=== PATIENT | female | born 1950 | race Caucasian/White ===

== ENCOUNTER → 2019-08-16 | Outpatient (CLI) | payer MEDICARE, OTHER ==
[2019-08-16 11:56] LABS: BASO # 0.1 10^3/uL (0.0-0.2); BASO % 1.3 % (0.0-1.0); EOS # 0.2 10^3/uL (0.0-0.5); EOS % 2.7 % (0.0-3.0); HEMATOCRIT 39.7 % (36.0-47.0); HEMOGLOBIN 12.6 g/dl (12.0-15.5); LYMPH # 1.8 10^3/uL (1.5-5.0); LYMPH % 26.3 % (24.0-44.0); MEAN CORPUSCULAR HEMOGLOBIN 29.4 pg (27.0-33.0); MEAN CORPUSCULAR HGB CONC 31.7 g/dl (32.0-36.5); MEAN CORPUSCULAR VOLUME 92.8 fl (80.0-96.0); MONO # 0.8 10^3/uL (0.0-0.8); MONO % 12.2 % (0.0-5.0); NEUTROPHILS # 3.8 10^3/uL (1.5-8.5); NEUTROPHILS % 57.2 % (36.0-66.0); PLATELET COUNT, AUTOMATED 219 10^3/uL (150-450); RED BLOOD COUNT 4.28 10^6/uL (4.00-5.40); WHITE BLOOD COUNT 6.7 10^3/uL (4.0-10.0)
[2019-08-16 12:47] LABS: FERRITIN 276 NG/ML (8-252); IRON (FE) 72 UG/DL (50-170); PERCENT SATURATION 23.6 % (13.2-45.0); TOTAL IRON BINDING CAPACITY 305 UG/DL (250-450); VITAMIN B12 LEVEL 886 PG/ML
[2019-08-16 13:11] LABS: FOLATE > 24.0 NG/ML
== END ==
LOC: M WUC 09:57
DX: D64.9 Anemia, unspecified (principal)

== ENCOUNTER → 2019-08-27 | Outpatient (REF) | payer MEDICARE, OTHER | LOC: M LAB REF 08:09 | PROVIDERS: ATTEND Surgery | DX: L72.3 Sebaceous cyst (principal) ==

== ENCOUNTER 2023-08-13 09:20 | Emergency (ER) | payer MEDICARE, OTHER ==
[~2023-08-13] VITALS: Ht 160 cm; Wt 83.0 kg
[2023-08-13] MEDS ORDERED: IRBE300T12 (09:32)
[2023-08-13] MEDS ORDERED: ECOT81TA5 PO (09:32)
[2023-08-13] MEDS ORDERED: [UNRECOGNIZED DRUG - OTHER] (09:32)
[2023-08-13] MEDS ORDERED: IBUP200T46 PO (09:32)
[2023-08-13] MEDS ORDERED: PRAV20TA2 (09:32)
[2023-08-13] MEDS ORDERED: ACET650T61 PO (09:32)
[2023-08-13] MEDS ORDERED: CIDA500T2 PO (09:32)
[2023-08-13] MEDS ORDERED: CALTTAB6 PO (09:32)
[2023-08-13] MEDS ORDERED: THERTAB52 PO (09:32)
[2023-08-13] MEDS ORDERED: CO Q200C10 PO (09:32)
[2023-08-13 10:39] LABS: HEMATOCRIT 39.7 % (36.0-47.0); HEMOGLOBIN 13.3 g/dl (12.0-15.5); MEAN CORPUSCULAR HEMOGLOBIN 31.1 pg (27.0-33.0); MEAN CORPUSCULAR HGB CONC 33.5 g/dl (32.0-36.5); PLATELET COUNT, AUTOMATED 317 10^3/uL (150-450); RED BLOOD COUNT 4.27 10^6/uL (4.00-5.40); WHITE BLOOD COUNT 11.5 10^3/uL (4.0-10.0)
[2023-08-13] MEDS: dexAMETHasone 20MG/5ML VIAL IV ONE (10:40)
[2023-08-13] MEDS: diphenhydrAMINE 50MG/ML VIAL IV ONE (10:40)
[2023-08-13] MEDS: FAMOTIDINE 20MG/2ML VIAL IVP ONE (10:40)
[2023-08-13 10:46] LABS: BLOOD UREA NITROGEN 25 MG/DL (9-23); CALCIUM LEVEL 9.5 MG/DL (8.3-10.6); CARBON DIOXIDE LEVEL 28 MMOL/L (20-31); CHLORIDE LEVEL 103 MMOL/L (98-107); CREATININE FOR GFR 0.74 MG/DL (0.55-1.30); GLOMERULAR FILTRATION RATE > 60.0 (>39); GLUCOSE, FASTING 128 MG/DL (74-106); POTASSIUM SERUM 4.8 MMOL/L (3.5-5.1); SODIUM LEVEL 136 MMOL/L (136-145)
[2023-08-13] MEDS ORDERED: CHLO125TA PO (12:49)
[2023-08-13] MEDS ORDERED: AMLO1TAB24 PO (12:49)
[2023-08-13 13:00] VITALS: BP 113/58; TEMP 98.4; O2SAT 98
== END 2023-08-13 13:08 | disposition home or self-care (01) ==
LOC: M ED 09:20
DX: T78.3XXA Angioneurotic edema, initial encounter (principal); T78.8XXA Other adverse effects, not elsewhere classified, initial encounter; I10 Essential (primary) hypertension; E78.5 Hyperlipidemia, unspecified; Z88.1 Allergy status to other antibiotic agents; Z88.2 Allergy status to sulfonamides; Z79.1 Long term (current) use of non-steroidal anti-inflammatories (NSAID); Z79.810 Long term (current) use of selective estrogen receptor modulators (SERMs); Z79.899 Other long term (current) drug therapy
CPT/HCPCS: 80048; 85027; 93041; 94760; 96374; 99285; J1100; J1200